=== PATIENT | female | born 1990 | race Two or more races ===

== ENCOUNTER 2018-11-28 18:37 | Emergency (ER) | payer MEDICAID ==
[~2018-11-28] VITALS: Ht 139.7 cm; Wt 44.0 kg
[2018-11-28 18:42] VITALS: BP 135/94
[2018-11-28 19:25] LABS: Urine Bacteria FEW /hpf (None Seen); Urine Blood Negative /uL (Negative); Urine Specific Gravity 1.005 (1.001-1.035); Urine WBC 4 /hpf (0 - 5)
[2018-11-28] MEDS ORDERED: IBUPROFEN 600 MG TAB PO ONE (22:30)
[2018-11-28] MEDS ORDERED: METHOCARBAMOL 500 MG TAB PO ONE (22:30)
== END 2018-11-28 22:50 | disposition home or self-care (01) ==
LOC: ER 18:39
DX: M54.41 Lumbago with sciatica, right side (principal); N39.0 Urinary tract infection, site not specified; F17.210 Nicotine dependence, cigarettes, uncomplicated
CPT/HCPCS: 81001